=== PATIENT | male | born 1935 | race Caucasian/White ===

== ENCOUNTER 2019-08-10 12:58 | Outpatient (CLI) | payer MEDICARE, OTHER | END 2019-08-10 12:59 | disposition short-term general hospital (02) | LOC: EMS 12:58 | PROVIDERS: ATTEND Surgery | DX: R42 Dizziness and giddiness (principal); R06.02 Shortness of breath; R61 Generalized hyperhidrosis; R11.10 Vomiting, unspecified | CPT/HCPCS: A0425; A0427; A0888 ==